=== PATIENT | female | born 1970 | race Caucasian/White ===

== ENCOUNTER 2021-08-04 09:04 | Emergency (ER) | payer MEDICAID, SELFPAY ==
[~2021-08-04] VITALS: Ht 162.6 cm; Wt 102.5 kg
[2021-08-04 09:07] VITALS: BP 159/111
--- NOTE | 2021-08-04 09:20 | NUR ---
PT AMBULATED WITH EVEN AND STEADY GAIT TO BED 3
--- NOTE | 2021-08-04 09:42 | NUR ---
pt c/o sob, dry cough x3 days. pt speaking in full sentences. breathing unlabored. 95% on ra. denies fevers. pending er md martinez.
[2021-08-04] MEDS ORDERED: ALBUTEROL HFA MDI 90 MCG/ACTUATION 8 GM INH ONE (10:05)
--- NOTE | 2021-08-04 10:14 | NUR ---
per ermd 12 lead was done on pt and came back nsr at 71 hr.
--- NOTE | 2021-08-04 10:18 | NUR ---
COLLECTED MARILYN MOSQUERA AND MARILYN BROWN. GAVE TO ARIELA NITROGLYCERIN NEUTRALIZER AT PT BEDSIDE.
[2021-08-04 11:06] LABS: BASOPHILS % (AUTO) 0.2 % (0.0-2.0); EOSINOPHILS # (AUTO) 0.2 K/uL (0-0.4); HEMATOCRIT 37.1 % (36-48); HEMOGLOBIN 11.9 g/dL (12.0-16.0); LYMPHOCYTES # (AUTO) 2.1 K/uL (2.5-16.5); LYMPHOCYTES % (AUTO) 27.2 % (20.5-51.1); MEAN CORPUSCULAR HEMOGLOBIN 26 pg (27-31); MEAN CORPUSCULAR HGB CONC 32 g/dL (33-37); MONOCYTES # (AUTO) 0.6 K/uL (0.8-1.0); MONOCYTES % (AUTO) 7.5 % (1.7-9.3); NEUTROPHILS # (AUTO) 4.8 K/uL (1.8-7.7); NEUTROPHILS % (AUTO) 62.1 % (42.2-75.2); PLATELET COUNT (AUTO) 282 K/uL (140-450); RED BLOOD CELL COUNT(AUTO) 4.53 MIL/uL (4.20-5.40); RED CELL DISTRIBUTION WIDTH 14.6 % (11.6-13.7); WHITE BLOOD COUNT (AUTO) 7.8 K/uL (4.8-10.8)
[2021-08-04 11:24] LABS: ALBUMIN 3.6 g/dL (3.4-5.0); ANION GAP 12.3 (8-16); CARBON DIOXIDE 27.4 mmol/L (21-32); CREATININE 0.6 mg/dL (0.6-1.3); POTASSIUM 3.7 mmol/L (3.5-5.1); TOTAL BILIRUBIN 0.3 mg/dL (0.0-1.0)
--- NOTE | 2021-08-04 12:30 | NUR ---
PT RESTING IN GURNEY NO CHANGES NOTED. PENDING DISPO
[2021-08-04] MEDS ORDERED: ALBUTEROL SULFATE/IPRATROPIU 3 ML SOL IH ONE (12:40)
[2021-08-04] MEDS ORDERED: predniSONE 20 MG TAB PO ONE (12:40)
[2021-08-04] MEDS ORDERED: ALBU6.7H IH (12:41)
[2021-08-04] MEDS ORDERED: PRED20TA5 PO (12:41)
[2021-08-04 13:10] VITALS: BP 127/77
--- NOTE | 2021-08-04 13:11 | NUR ---
PT VERBALIZES DC INSTRUCTIONS. NO ACUTE DISTRESS NOTED. STABLE ON DC.
== END 2021-08-04 13:10 | disposition home or self-care (01) ==
LOC: MED 09:04
DX: J20.9 Acute bronchitis, unspecified (principal); Z20.822 Contact with and (suspected) exposure to COVID-19; I10 Essential (primary) hypertension; Z79.899 Other long term (current) drug therapy
CPT/HCPCS: 71045; 80053; 84484; 85025; 85379; 87426; 93005; 94640; 99285; J7512; Q0092; U0003

== ENCOUNTER 2021-08-07 11:22 | Day surgery (SDC) | payer MEDICAID, SELFPAY ==
[2021-08-04 14:18] LABS: BASOPHILS % (AUTO) 0.5 % (0.0-2.0); EOSINOPHILS # (AUTO) 0.3 K/uL (0-0.4); EOSINOPHILS % (AUTO) 3.7 % (0.0-4.0); HEMATOCRIT 37.8 % (36-48); HEMOGLOBIN 12.2 g/dL (12.0-16.0); LYMPHOCYTES # (AUTO) 2.3 K/uL (2.5-16.5); LYMPHOCYTES % (AUTO) 29.8 % (20.5-51.1); MEAN CORPUSCULAR HEMOGLOBIN 26 pg (27-31); MEAN CORPUSCULAR HGB CONC 32 g/dL (33-37); MEAN CORPUSCULAR VOLUME 81.7 fL (80-94); MONOCYTES # (AUTO) 0.4 K/uL (0.8-1.0); MONOCYTES % (AUTO) 5.3 % (1.7-9.3); NEUTROPHILS # (AUTO) 4.6 K/uL (1.8-7.7); NEUTROPHILS % (AUTO) 60.7 % (42.2-75.2); PLATELET COUNT (AUTO) 283 K/uL (140-450); RED BLOOD CELL COUNT(AUTO) 4.62 MIL/uL (4.20-5.40); WHITE BLOOD COUNT (AUTO) 7.6 K/uL (4.8-10.8)
[2021-08-04 14:39] LABS: ALBUMIN 3.7 g/dL (3.4-5.0); ANION GAP 14.2 (8-16); CARBON DIOXIDE 26.6 mmol/L (21-32); CREATININE 0.6 mg/dL (0.6-1.3); POTASSIUM 3.8 mmol/L (3.5-5.1); TOTAL BILIRUBIN 0.4 mg/dL (0.0-1.0)
[~2021-08-07] VITALS: Ht 162.6 cm; Wt 100.7 kg
[~2021-08-07 11:22] MED LIST: ALBU6.7H IH; PRED20TA5 PO
[2021-08-07] MEDS ORDERED: MIDAZOLAM 2 MG/2 ML VIAL ONE (12:27)
[2021-08-07] MEDS ORDERED: fentaNYL citrate 0.05 MG/ML VIAL ONE (12:27)
[2021-08-07] MEDS ORDERED: SEVOFLURANE 250 ML BTL INH ONE (12:56)
[2021-08-07] MEDS ORDERED: DEXAMETHASONE 4 MG/ML VIAL ONE (13:08)
[2021-08-07] MEDS ORDERED: PROPOFOL 200 MG/20 ML VIAL IV ONE (13:08)
[2021-08-07] MEDS ORDERED: ONDANSETRON 4 MG/2 ML VIAL ONE (13:08)
[2021-08-07] MEDS ORDERED: MEPERIDINE 25 MG/ML SYR IVP PRN (13:30)
[2021-08-07] MEDS ORDERED: LACTATED RINGERS 1,000 ML IV SCH (13:30)
[2021-08-07] MEDS ORDERED: diphenhydrAMINE 50 MG/ML VIAL IVP PRN (13:30)
[2021-08-07] MEDS ORDERED: HYDROmorphone 1 MG/ML AMP IVP PRN (13:30)
[2021-08-07] MEDS ORDERED: ONDANSETRON 4 MG/2 ML VIAL IVP PRN (13:30)
== END 2021-08-07 15:00 | disposition home or self-care (01) ==
LOC: MDS 11:22 → MMU 11:23 → MDS 15:00
PROVIDERS: ATTEND Obstetrics & Gynecology
DX: N95.0 Postmenopausal bleeding (principal); N84.0 Polyp of corpus uteri; K21.9 Gastro-esophageal reflux disease without esophagitis; I10 Essential (primary) hypertension; E66.9 Obesity, unspecified; Z68.38 Body mass index [BMI] 38.0-38.9, adult; Z79.899 Other long term (current) drug therapy; Z20.822 Contact with and (suspected) exposure to COVID-19
CPT/HCPCS: 36415; 58558; 71045; 80053; 85025; 86886; 86900; 86901; 93005; J1100; J2250; J2405; J2704; J3010; J7120; U0003; 88305